=== PATIENT | male | born 1955 | race Two or more races ===

== ENCOUNTER → 2017-04-13 | Outpatient (CLI) | payer BC | END | disposition home or self-care (01) | LOC: Rad HDHVI 08:48 | PROVIDERS: ATTEND Internal Medicine Cardiovascular Disease | DX: I10 Essential (primary) hypertension (principal); I47.1 Supraventricular tachycardia | CPT/HCPCS: 93306 ==

== ENCOUNTER → 2017-04-26 | Outpatient (CLI) | payer BC ==
[~2017-04-26] VITALS: Ht 175.3 cm; Wt 83.9 kg
== END | disposition home or self-care (01) ==
LOC: Rad HDHVI 09:50
PROVIDERS: ATTEND Internal Medicine Cardiovascular Disease
DX: Z95.0 Presence of cardiac pacemaker (principal)
CPT/HCPCS: 78452; 93017; 96374; A9500

== ENCOUNTER → 2017-06-19 | Outpatient (CLI) | payer BC ==
[~2017-06-19] VITALS: Ht 30.5 cm; Wt 83.9 kg
[~2017-06-19] MED LIST: ASPI81TA27 PO; ENOXAPARIN SOD 30 MG/0.3 ML SYRINGE IV ONE; ENOXAPARIN SOD 30 MG/0.3 ML SYRINGE ONE; FLEC50TA15 PO; LORazepam 2MG/ML-1ML VIAL IV ONE; LORazepam 2MG/ML-1ML VIAL ONE; METO-169 PO; SODIUM CHLORIDE 0.9% 1,000 ML IV ONE; SOTA80TA PO
[2017-06-19 10:20] VITALS: BP 107/83
[2017-06-19 14:25] VITALS: BP 106/75
[2017-06-19 16:24] LABS: Basophils # (auto) 0 uL; Basophils % (auto) 0.7 % (0.0-2.0); Eosinophils # (auto) 0.2 uL; Eosinophils % (auto) 2.4 % (0.0-7.0); Hemoglobin 15.7 g/dL (13.5-17.5); Lymphocytes # (auto) 1.5 uL; Lymphocytes % (auto) 23.7 % (10.0-50.0); Mean Corpuscular Hemoglobin 28.4 pg (28.0-32.0); Mean Corpuscular Hgb Conc. 33.4 g/dL (32.0-36.0); Mean Corpuscular Volume 84.9 fL (80.0-100.0); Mean Platelet Volume 8.9 fL (6.9-10.8); Monocytes # (auto) 0.5 uL; Monocytes % (auto) 7.9 % (0.0-12.0); Neutrophils # (auto) 4.2 uL; Neutrophils % (auto) 65.3 % (37.0-80.0); Nucleated Red Blood Cells % 0.6 %; Platelet Count (auto) 291 10^3/uL (140-450); Red Cell Distribution Width 14.6 % (11.8-14.3); White Blood Cell 6.5 10^3/uL (4.4-10.8)
[2017-06-19 16:38] LABS: Calcium 8.7 mg/dL (8.5-10.1); Magnesium 2.5 mg/dL (1.6-2.6); Potassium 4.9 mmol/L (3.5-5.1)
[2017-06-19 16:46] LABS: BUN/Creatinine Ratio 14.7
== END | disposition home or self-care (01) ==
LOC: CHF HDHVI 10:21
PROVIDERS: ATTEND Internal Medicine Cardiovascular Disease
DX: I10 Essential (primary) hypertension (principal); E83.42 Hypomagnesemia; I48.92 Unspecified atrial flutter; D64.9 Anemia, unspecified; R00.0 Tachycardia, unspecified
CPT/HCPCS: 36415; 80048; 83735; 85025; 92960; 93005; 96361; 96374; 96375; G0463; J1650; J2060; 96360

== ENCOUNTER 2017-07-21 12:07 | Inpatient (IN) | payer BC ==
[~2017-07-21] VITALS: Ht 175.3 cm; Wt 91.1 kg
[2017-07-21] MEDS ORDERED: ISOPROTERENOL IV ONE (13:15)
[2017-07-21] MEDS ORDERED: ISOPROTERENOL HCL INJECTION 1 MG in D5W 5% 250 ML IV SCH (13:45)
[2017-07-21] MEDS ORDERED: LIDOCAINE 2%HCL (LOCAL ANESTH.) INJ 20ML MDV ONE (15:31)
[2017-07-21] MEDS ORDERED: fentaNYL CITRATE 100 MCG/2 ML VL ONE ×2 (15:48→16:35)
[2017-07-21] MEDS ORDERED: MIDAZOLAM HCL 1MG/1ML-2 ML VIAL ONE (15:49)
[2017-07-21] MEDS ORDERED: SOTA80TA PO (18:32)
[2017-07-21] MEDS ORDERED: METO-169 PO (18:32)
[2017-07-21] MEDS ORDERED: FLEC50TA15 PO (18:32)
[2017-07-21] MEDS ORDERED: ASPI81TA27 PO (18:32)
[2017-07-21] MEDS ORDERED: ONDANSETRON HCL 4 MG/2 ML VIAL IV PRN (18:45)
[2017-07-21] MEDS ORDERED: ACETAMINOPHEN 500 MG TAB PO PRN (18:45)
[2017-07-21] MEDS ORDERED: MORPHINE SULF INJ 2 MG/ML SYRINGE 1ML IV PRN (18:45)
[2017-07-21] MEDS ORDERED: NITROGLYCERIN 0.4 MG SL TAB SL PRN ×2 (18:45)
[2017-07-21] MEDS ORDERED: HYDROcodone-ACET 5/325MG TAB PO PRN (18:45)
[2017-07-21 19:45] VITALS: BP 105/65
[2017-07-21] MEDS: ENOXAPARIN SOD 40 MG/0.4 ML SYRINGE SC SCH (20:22)
[2017-07-21 21:56] VITALS: BP 105/65
[2017-07-21] MEDS: SODIUM CHLOR 0.9% PF (SALINE LOCK) 10ML VIAL IV SCH (22:14)
[2017-07-21] MEDS: FLECAINIDE ACETATE 50 MG TAB PO SCH (22:14)
[2017-07-22] MEDS ORDERED: ZOLPIDEM TARTRATE 5 MG TAB PO PRN (00:15)
[2017-07-22 05:21] VITALS: BP 110/72
[2017-07-22] MEDS: SODIUM CHLOR 0.9% PF (SALINE LOCK) 10ML VIAL IV SCH (05:31)
[2017-07-22 08:58] VITALS: BP 116/84
[2017-07-22] MEDS ORDERED: METOPROLOL SUCCINATE XL 50 MG TAB PO SCH (10:00)
[2017-07-22] MEDS ORDERED: ASPirin 81 mg TAB PO SCH (10:00)
[2017-07-22] MEDS: ENOXAPARIN SOD 40 MG/0.4 ML SYRINGE SC SCH (10:26)
[2017-07-22] MEDS: FLECAINIDE ACETATE 50 MG TAB PO SCH (10:27)
== END 2017-07-22 12:40 | disposition home or self-care (01) | DRG 310 ==
LOC: CATH 12:07 → EAST 19:50
PROVIDERS: ADMIT Specialist; ATTEND Specialist
PROC: 4B02XSZ Measurement of Cardiac Pacemaker, External Approach (ICD-10-PCS; principal; 2017-07-21)
DX: I48.92 Unspecified atrial flutter (principal); I49.5 Sick sinus syndrome
CPT/HCPCS: 87081; 93005; 99152; J2250; J7060